=== PATIENT | male | born 1970 | race Caucasian/White ===

== ENCOUNTER 2016-05-16 19:26 | Emergency (ER) | payer OTHER ==
[2016-05-16 19:40] VITALS: BP 134/85; PULSE 69; RESP 16; TEMP 98.8; O2SAT 96
--- NOTE | 2016-05-16 19:48 | UCPHY ---
H & P Time Seen by Provider: 05/16/16 19:37 Patient Type: Established HPI/ROS: This patient has sinus congestion left-sided with dark purulent appearing discharge and left eye conjunctival injection with discharge over the past 24 hours. 5 days ago he was diagnosed with influenza but was to treat with Tamiflu. This was diagnosed at [facility] with a nasal swab. He has had typical flu symptoms with resolution of fever over the past 24 hours but he feels that he now has left maxillary sinus pain and darker appearing nasal discharge left side that concerns him for potential bacterial sinusitis. ROS: No eye pain or visual changes. No confusion. No neck stiffness. 7 point ROS is otherwise negative. Past Medical/Surgical History: Otherwise healthy exceptionnt influenzaListed above. Smoking Status: Never smoked Physical Exam: Physical Exam Vital signs are normal. General: No acute distress HEENT: Nose: Dark yellow discharge from the left naris with swollen nasal mucosa. Right he is because is clear. No sinus tenderness to percussion. Ears: External canals and tympanic membranes are clear with no erythema or abnormal findings bilaterally. Oropharynx: No erythema or exudates. No dysphonia. No drooling or stridor. Neck: Supple with no meningismus. Eyes: Pupils equal and react to light. Extraocular motions are intact. Mild conjunctival injection to the left eye. No purulent discharge this time. He has mild region. Lids and lashes are normal. No periorbital findings. Lungs: Clear to auscultation bilaterally with no rales, rhonchi or wheeze. No respiratory distress. Cardiac: Regular rate and rhythm with no murmur gallop or rub Skin: No rash or pallor. Neuro: Alert with no focal deficits noted. Initial differential diagnosis: Viral rhinosinusitis versus bacterial sinusitis , conjunctivitis Constitutional: Initial Vital Signs Temperature (C) 37.1 C 05/16/16 19:37 Heart Rate 69 05/16/16 19:37 Respiratory Rate 16 05/16/16 19:37 Blood Pressure 134/85 H 05/16/16 19:37 O2 Sat (%) 96 05/16/16 19:37 O2 Delivery Mode Room Air Allergies/Adverse Reactions: No Known Allergies Allergy (Unverified 05/16/16 19:36) Home Medications: Medication Instructions Recorded NO HOME MEDICATIONS 09/24/10 Amoxicillin Trihydrate 500 mg PO TID 7 Days 05/16/16 [Amoxicillin] Fluticasone Nasal [Flonase Nasal 2 sprays NASAL DAILY #1 mdi 05/16/16 [place] (RX)] Ofloxacin 0.3% [Ocuflox 0.3% (RX)] 2 drops EACHEYE Q1 #1 btl 05/16/16 Departure - Departure Disposition: Home, Routine, Self-Care Clinical Impression: Acute rhinosinusitis Condition: Good Instructions: Rhinosinusitis (ED), Conjunctivitis (ED) Additional Instructions: Diagnosis: Left-sided conjunctivitis 2. Rhinosinusitis Plan: Humidifier Ibuprofen Flonase steroid nasal spray For symptoms are not improving over the next few days then start Amoxil in addition Ocuflox antibiotic drops in left eye as prescribed. Return for any significant worsening despite the treatment plan Referrals: NONE *PRIMARY CARE P,. [Primary Care Provider] - As per Instructions Prescriptions: Amoxicillin Trihydrate [Amoxicillin] 500 mg PO TID 7 Days Fluticasone Nasal [Flonase Nasal [place] (RX)] 2 sprays NASAL DAILY #1 mdi Ofloxacin 0.3% [Ocuflox 0.3% (RX)] 2 drops EACHEYE Q1 #1 btl - PQRS PQRS Measurement: NA
== END 2016-05-16 19:57 | disposition home or self-care (01) ==
LOC: CED 19:26
DX: J31.0 Chronic rhinitis (principal); J01.90 Acute sinusitis, unspecified; H10.9 Unspecified conjunctivitis
CPT/HCPCS: 99214-PO; G0463-PO

== ENCOUNTER → 2016-05-24 | Outpatient (CLI) | payer OTHER | LOC: BMCIMAGING 08:27 | PROVIDERS: ATTEND Family Medicine | DX: M25.562 Pain in left knee (principal) ==